=== PATIENT | female | born 1995 | race Caucasian/White ===

== ENCOUNTER 2021-05-09 05:30 | Inpatient (IN) | payer OTHER ==
[~2021-05-09] VITALS: Ht 160 cm; Wt 89.4 kg
[~2021-05-09 05:30] MED LIST: MACROBID 100 M100 MG PO; PHENERGAN 25 MG25 M1 PO
[2021-05-09 07:32] LABS: HEMOGLOBIN 13.1 gm/dl (12.3-15.3); RED BLOOD COUNT 4.03 M/UL (4.00-5.10); WHITE BLOOD COUNT 10.4 K/UL (4.5-11.0)
[2021-05-09] MEDS ORDERED: FEROSUL325 MG PO (13:28)
[2021-05-09] MEDS ORDERED: DOCUSATE SODIU250 MG PO (13:28)
[2021-05-09] MEDS ORDERED: IBUPROFEN600 MG PO (13:28)
[2021-05-10 06:39] LABS: HEMOGLOBIN 11.7 gm/dl (12.3-15.3)
== END 2021-05-10 17:32 | disposition home or self-care (01) | DRG 807 ==
LOC: OB 05:30
PROVIDERS: ADMIT Obstetrics & Gynecology
PROC: 10E0XZZ Delivery of Products of Conception, External Approach (ICD-10-PCS; principal; 2021-05-09)
PROC: 3E033VJ Introduction of Other Hormone into Peripheral Vein, Percutaneous Approach (ICD-10-PCS; 2021-05-09)
PROC: 10907ZC Drainage of Amniotic Fluid, Therapeutic from Products of Conception, Via Natural or Artificial Opening (ICD-10-PCS; 2021-05-09)
PROC: 4A1HXCZ Monitoring of Products of Conception, Cardiac Rate, External Approach (ICD-10-PCS; 2021-05-09)
DX: O75.89 Other specified complications of labor and delivery (principal); Z37.0 Single live birth; Z3A.39 39 weeks gestation of pregnancy; Z20.822 Contact with and (suspected) exposure to COVID-19
CPT/HCPCS: 51702; 81001; 82800; 85014; 85018; 85025; 90715; J2590; J2795; J3010; J7120